=== PATIENT | female | born 1980 | race Caucasian/White ===

== ENCOUNTER 2019-02-23 13:14 | Emergency (ER) | payer BC ==
--- NOTE | 2019-02-23 13:55 | RAD REPORT ---
EXAM DESCRIPTION: CT - Head Brain Wo Cont - 02/23/2019 1:45 pm CLINICAL HISTORY: PAIN Headache, drowsiness COMPARISON: No comparisons TECHNIQUE: All CT scans are performed using dose optimization technique as appropriate and may inclu de automated exposure control or mA/KV adjustment according to patient size. FINDINGS: No intracranial hemorrhage, hydrocephalus or extra-axial fluid collection.No areas of brai n edema or evidence of midline shift. Right-sided ventriculostomy tube is in place, with its tip in t he region of the frontal horn of the right lateral ventricle. Mild polypoid mucosal thickening is seen right maxillary antrum inferiorly and right ethmoid air cell s. The mastoid air cells are clear. The calvarium is intact. IMPRESSION: No acute intracranial abnormality.
--- NOTE | 2019-02-23 13:57 | RAD REPORT ---
EXAM DESCRIPTION: RAD - Chest Single View - 02/23/2019 1:50 pm CLINICAL HISTORY: CONGESTION Chest pain. COMPARISON: No comparisons FINDINGS: Portable technique limits examination quality. Mild linear atelectasis is present in the right lung base. The lungs are otherwise clear. The heart i s upper limit normal in size. Shunt tubing traverses the right chest.
[2019-02-23] MEDS ORDERED: METHYLPREDNISOLONE 125 MG INJ ONE (14:09)
[2019-02-23] MEDS ORDERED: ALBUTEROL 2.5 MG/3 ML NEB SOL ONE (14:09)
[2019-02-23] MEDS ORDERED: KETOROLAC 30 MG/ML INJ ONE (14:10)
[2019-02-23] MEDS ORDERED: IPRATROPIUM BROM 0.5MG/2.5ML ONE (14:10)
[2019-02-23 14:45] LABS: Absolute Lymphocytes (CBC) 1.7 K/uL (0.7-4.9); Basophils % 1.1 % (0-1.3); Hematocrit 49.1 % (36.0-45.0); Lymphocytes % 12.7 % (15.3-44.8); MPV 9.6 fL (7.6-11.3); RBC Red Blood Cell Count 6.01 M/uL (3.86-4.86)
[2019-02-23 14:46] LABS: Protime INR 1.04
[2019-02-23 15:03] LABS: BUN Blood Urea Nitrogen 20 mg/dL (7-18); Bicarbonate 26 mmol/L (21-32); Creatine Phosphokinase 59 U/L (26-192); Glucose Level 142 mg/dL (74-106); Lipase 71 U/L (73-393); Magnesium 2.3 mg/dL (1.8-2.4); NT PRO-BNP 68 pg/mL (<125); Potassium 3.3 mmol/L (3.5-5.1); Sodium Level 139 mmol/L (136-145); Troponin (Emerg Dept Use Only) < 0.02 ng/mL (0.0-0.045)
--- NOTE | 2019-02-23 15:09 | ER ---
Nurse's Notes [facility] Name: Lupis Cancino Age: 38 yrs Sex: Female : 1980 Arrival Date: 02/23/2019 Time: 13:16 Bed 2 Private MD: Diagnosis: Acute sinusitis Presentation: 02/23 13:18 Presenting complaint: Patient states: was dx w/ bronchitis 1.5 weeks ago and given sv Prednisone and Amoxicillin; c/o SOB, non-productive cough. Stated she drove down from [place] on and arrived here Saturday and started having camille ear pressure/unable to hear, blurry vision started last night around 1800 in both eyes. Transition of care: patient was not received from another setting of care. Onset of symptoms was 2018. Risk Assessment: Do you want to hurt yourself or someone else? Patient reports no desire to harm self or others. Care prior to arrival: None. 13:18 Method Of Arrival: Ambulatory sv 13:18 Acuity: PRASAD 2 sv 13:30 Initial Sepsis Screen: Does the patient meet any 2 criteria? RR > 20 per min. HR > 90 sv bpm. Yes Does the patient have a suspected source of infection? No. Patient's initial sepsis screen is negative. Historical: - Allergies: 13:28 No Known Allergies; sv - Home Meds: 13:28 metformin Oral [Active]; Topamax Oral [Active]; sv - PMHx: 13:28 Hypertension; Asthma; Sleep apnea; Intracranial hypertension; Diabetes - NIDDM; sv - PSHx: 13:28 LEAD QA ANALYST shunt; optic nerve; sv - Immunization history:: Flu vaccine is not up to date. - Social history:: Smoking status: Patient/guardian denies using tobacco, Patient/guardian denies using alcohol, street drugs, The patient lives alone. - Ebola Screening: : No symptoms or risks identified at this time. - Family history:: not pertinent. Screenin:43 Abuse screen: Denies threats or abuse. Denies injuries from another. Nutritional ph screening: No deficits noted. Tuberculosis screening: No symptoms or risk factors identified. Fall Risk None identified. Assessment: 13:45 General: Appears in no apparent distress. uncomfortable, Behavior is calm, cooperative, ph appropriate for age, Denies fever, chills. Pain: Complains of pain in right zoroastrian and left zoroastrian and occipital area. Neuro: Level of Consciousness is awake, alert, obeys commands, Oriented to person, place, time, situation, Reports headache frontal area, occipital area. Cardiovascular: Capillary refill < 3 seconds in bilateral fingers Patient's skin is warm and dry. Respiratory: Reports cough that is productive, Airway is patent Respiratory effort is even, unlabored, Respiratory pattern is regular, symmetrical. GI: Patient currently denies abdominal pain, nausea, vomiting. EENT: Reports blurred vision decreased hearing in right ear and left ear nasal congestion nasal discharge. Derm: Skin is intact, Skin is pink, warm \T\ dry. Musculoskeletal: Circulation, motion, and sensation intact. Range of motion: intact in all extremities. Vital Signs: 13:28 BP 172 / 124; Pulse 107; Resp 28; Temp 99.1(TE); Pulse Ox 96% ; Weight 204.12 kg; sv Height 5 ft. 6 in. (167.64 cm); Pain 5/10; 14:42 BP 161 / 110; Pulse 102; Resp 22; Pulse Ox 100% on Nebulizer Mask; ph 13:28 Body Mass Index 72.63 (204.12 kg, 167.64 cm) sv ED Course: 13:16 Patient arrived in ED. ag5 13:18 Barak Mckay MD is Attending Physician. ma2 13:27 Triage completed. sv 13:29 Arm band placed on. sv 13:49 CT Head Brain wo Cont In Process Unspecified. EDMS 13:51 XRAY CXR (1 view) In Process Unspecified. EDMS 14:14 EKG done, by library technical assistant. reviewed by Barak Mckay MD. at1 14:26 Roberta Conner, RN is Primary Nurse. ph 14:44 Patient has correct armband on for positive identification. Bed in low position. Call ph light in reach. Side rails up X 1. Pulse ox on. NIBP on. Door closed. Noise minimized. 15:18 No provider procedures requiring assistance completed. IV discontinued, intact, ss bleeding controlled, No redness/swelling at site. Pressure dressing applied. Administered Medications: 13:39 CANCELLED (na): NS 0.9% 1000 ml IV at 1 bolus Per protocol; 1000 mL bolus ma2 13:45 Drug: Albuterol 2.5 mg Route: Inhalation; ph 13:45 Drug: AtroVENT Aerosol 0.5 mg Route: Inhalation; ph 14:00 Drug: AtroVENT Aerosol 0.5 mg Route: Inhalation; ph 14:05 Drug: Albuterol 2.5 mg Route: Inhalation; ph 14:28 Drug: AtroVENT Aerosol 0.5 mg Route: Inhalation; ph 15:00 Follow up: Response: No adverse reaction ph 14:29 Drug: SOLU-Medrol 125 mg Route: IVP; Site: right antecubital; ph 14:45 Follow up: Response: No adverse reaction ph 14:29 Drug: Albuterol 2.5 mg Route: Inhalation; ph 15:00 Follow up: Response: No adverse reaction ph 14:30 Drug: TORadol 30 mg Route: IVP; Site: right antecubital; ph 15:00 Follow up: Response: No adverse reaction; Pain is decreased ph Outcome: 15:08 Discharge ordered by MD. batista 15:18 Discharged to home ambulatory, with family. 15:18 Condition: good 15:18 Discharge instructions given to patient, family, Instructed on discharge instructions, follow up and referral plans. medication usage, Demonstrated understanding of instructions, follow-up care, medications, Prescriptions given X 1. 15:20 Patient left the ED. Signatures: Dispatcher [employer] EDMS Kellie Bailey RN RN sv Smirch, Shelby, RN RN Jonelle Mcnally, city carrier assistant EKG Tat1 Roberta Conner RN RN ph Barak Mckay MD MD ma2 Shira Black ag5 Corrections: (The following items were deleted from the chart) 13:30 13:28 BP 172 / 124; Pulse 107bpm; Resp 28bpm; Pulse Ox 96%; 204.12 kg; Height 5 ft. 6 sv in.; BMI: 72.6; Pain 5/10; sv
--- NOTE | 2019-02-23 15:09 | EDPHYS ---
Physician Documentation [facility] Name: Lupis Cancino Age: 38 yrs Sex: Female : 1980 Arrival Date: 02/23/2019 Time: 13:16 Bed 2 Private MD: ED Physician Barak Mckay HPI: 02/23 15:05 This 38 yrs old Female presents to ER via Ambulatory with complaints of Blurred Vision, ma2 Ear Pain. 15:05 Onset: The symptoms/episode began/occurred gradually, 1 week(s) ago. Associated signs ma2 and symptoms: Pertinent negatives: nausea, shortness of breath, tinnitus. Severity of symptoms: At their worst the symptoms were mild. The patient has not experienced similar symptoms in the past. Historical: - Allergies: 13:28 No Known Allergies; sv - Home Meds: 13:28 metformin Oral [Active]; Topamax Oral [Active]; sv - PMHx: 13:28 Hypertension; Asthma; Sleep apnea; Intracranial hypertension; Diabetes - NIDDM; sv - PSHx: 13:28 APPLICATION OPERATIONS ENGINEER shunt; optic nerve; sv - Immunization history:: Flu vaccine is not up to date. - Social history:: Smoking status: Patient/guardian denies using tobacco, Patient/guardian denies using alcohol, street drugs, The patient lives alone. - Ebola Screening: : No symptoms or risks identified at this time. - Family history:: not pertinent. ROS: 15:05 Constitutional: Negative for fever, chills, and weight loss, Cardiovascular: Negative ma2 for chest pain, palpitations, and edema, Respiratory: Negative for shortness of breath, cough, wheezing, and pleuritic chest pain, Abdomen/GI: Negative for abdominal pain, nausea, diarrhea, and constipation. 15:05 All other systems are negative. Exam: 15:05 Constitutional: This is a well developed, well nourished patient who is awake, alert, ma2 and in no acute distress. Head/Face: Normocephalic, atraumatic. Eyes: Pupils equal round and reactive to light, extra-ocular motions intact. Lids and lashes normal. Conjunctiva and sclera are non-icteric and not injected. Cornea within normal limits. Periorbital areas with no swelling, redness, or edema. ENT: Nares patent. No nasal discharge, no septal abnormalities noted. Tympanic membranes are normal and external auditory canals are clear. Oropharynx with no redness, swelling, or masses, exudates, or evidence of obstruction, uvula midline. Mucous membranes moist. Neck: Trachea midline, no thyromegaly or masses palpated, and no cervical lymphadenopathy. Supple, full range of motion without nuchal rigidity, or vertebral point tenderness. No Meningismus. Chest/axilla: Normal chest wall appearance and motion. Nontender with no deformity. No lesions are appreciated. Cardiovascular: Regular rate and rhythm with a normal S1 and S2. No gallops, murmurs, or rubs. Normal PMI, no JVD. No pulse deficits. Respiratory: Lungs have equal breath sounds bilaterally, clear to auscultation and percussion. No rales, rhonchi or wheezes noted. No increased work of breathing, no retractions or nasal flaring. Abdomen/GI: Soft, non-tender, with normal bowel sounds. No distension or tympany. No guarding or rebound. No evidence of tenderness throughout. Vital Signs: 13:28 BP 172 / 124; Pulse 107; Resp 28; Temp 99.1(TE); Pulse Ox 96% ; Weight 204.12 kg; sv Height 5 ft. 6 in. (167.64 cm); Pain 5/10; 14:42 BP 161 / 110; Pulse 102; Resp 22; Pulse Ox 100% on Nebulizer Mask; ph 13:28 Body Mass Index 72.63 (204.12 kg, 167.64 cm) sv MDM: 13:18 Patient medically screened. ma2 15:05 Differential diagnosis: otitis media, otitis externa, acute otalgia, cerumen impaction. ma2 Data reviewed: vital signs, nurses notes. Counseling: I had a detailed discussion with the patient and/or guardian regarding: the historical points, exam findings, and any diagnostic results supporting the discharge/admit diagnosis, the presence of at least one elevated blood pressure reading (>120/80) during this emergency department visit. 02/23 13:39 Order name: NT PRO-BNP; Complete Time: 15:05 ma2 02/23 13:39 Order name: BMP; Complete Time: 15:05 ma2 02/23 13:39 Order name: CBC with Diff; Complete Time: 14:52 ma2 02/23 13:39 Order name: CPK; Complete Time: 15:05 ma2 02/23 13:39 Order name: Lipase; Complete Time: 15:05 ma2 02/23 13:39 Order name: Magnesium; Complete Time: 15:05 ma2 02/23 13:35 Order name: CT Head Brain wo Cont; Complete Time: 14:21 ma2 02/23 13:39 Order name: XRAY CXR (1 view); Complete Time: 14:21 ma2 02/23 13:39 Order name: PT-INR; Complete Time: 14:52 ma2 02/23 13:39 Order name: Ptt, Activated; Complete Time: 14:52 ma2 02/23 13:39 Order name: Troponin (emerg Dept Use Only); Complete Time: 15:05 ma2 02/23 13:39 Order name: EKG; Complete Time: 13:40 ma2 02/23 13:39 Order name: Cardiac monitoring; Complete Time: 14:53 ma2 02/23 13:39 Order name: EKG - Nurse/Tech; Complete Time: 14:53 ma2 02/23 13:39 Order name: IV Saline Lock; Complete Time: 14:53 ma2 02/23 13:39 Order name: Labs collected and sent; Complete Time: 14:53 ma2 02/23 13:39 Order name: O2 Per Protocol; Complete Time: 14:53 ma2 02/23 13:39 Order name: O2 Sat Monitoring; Complete Time: 14:53 ma2 Administered Medications: 13:39 CANCELLED (na): NS 0.9% 1000 ml IV at 1 bolus Per protocol; 1000 mL bolus ma2 13:45 Drug: Albuterol 2.5 mg Route: Inhalation; ph 13:45 Drug: AtroVENT Aerosol 0.5 mg Route: Inhalation; ph 14:00 Drug: AtroVENT Aerosol 0.5 mg Route: Inhalation; ph 14:05 Drug: Albuterol 2.5 mg Route: Inhalation; ph 14:28 Drug: AtroVENT Aerosol 0.5 mg Route: Inhalation; ph 15:00 Follow up: Response: No adverse reaction ph 14:29 Drug: SOLU-Medrol 125 mg Route: IVP; Site: right antecubital; ph 14:45 Follow up: Response: No adverse reaction ph 14:29 Drug: Albuterol 2.5 mg Route: Inhalation; ph 15:00 Follow up: Response: No adverse reaction ph 14:30 Drug: TORadol 30 mg Route: IVP; Site: right antecubital; ph 15:00 Follow up: Response: No adverse reaction; Pain is decreased ph Disposition: 02/23/19 15:08 Discharged to Home. Impression: Acute sinusitis. - Condition is Stable. - Discharge Instructions: Sinus Headache. - Prescriptions for Benadryl 25 mg Oral Capsule - take 1 capsule by ORAL route every 6 hours As needed; 30 tablet. - Medication Reconciliation Form, Thank You Letter, Antibiotic Education, Prescription Opioid Use form. - Follow up: Private Physician; When: Tomorrow; Reason: If symptoms return, Continuance of care. Signatures: Dispatcher [employer] Kellie Love RN RN sv Smirch, Shelby, RN RN ss Hall, Patricia, RN RN Barak Mckay MD MD ma2 Corrections: (The following items were deleted from the chart) 13:39 13:39 NS 0.9% 1000 ml IV at 1 bolus Per protocol; 1000 mL bolus ordered. ma2 ma2 15:20 15:08 02/23/2019 15:08 Discharged to Home. Impression: Acute sinusitis. Condition is ss Stable. Forms are Medication Reconciliation Form, Thank You Letter, Antibiotic Education, Prescription Opioid Use. Follow up: Private Physician; When: Tomorrow; Reason: If symptoms return, Continuance of care. ma2
[2019-02-23 15:26] VITALS: TEMP 99.1
[2019-02-23 15:27] VITALS: BP 161/110; O2SAT 100
--- NOTE | 2019-02-23 20:47 | EKG ---
Test Date: 2019-02-23 Test Time: 14:10:59 Chopper Gun Operator: СЕРГЕЙ MEASUREMENT RESULTS: Intervals: Rate: 94 SD: 150 QRSD: 66 QT: 334 QTc: 417 [place]: P: 5 SD: 150 QRS: -3 T: 37 INTERPRETIVE STATEMENTS: Sinus rhythm with premature atrial complexes Otherwise normal ECG No previous ECG available for comparison Electronically Signed On 02-23-19 20:46:38 HELIUM ARC WELDER by Terry Moran
== END 2019-02-23 15:20 | disposition home or self-care (01) ==
LOC: ER 13:14
DX: J01.90 Acute sinusitis, unspecified (principal); I10 Essential (primary) hypertension; E11.9 Type 2 diabetes mellitus without complications
CPT/HCPCS: 93005; 85025; 80048; 36415; 83735; 82550; 85610; 85730; 84484; 83690; 83880; 70450; 71045; 96375; 96374; 99284; J2930